=== PATIENT | female | born 1965 | race Caucasian/White ===

== ENCOUNTER 2020-07-10 07:02 | Outpatient (NON) | payer OTHER, SELFPAY ==
[2020-07-10 22:00] LABS: SARS-CoV-2 RNA PCR Negative
== END 2020-07-10 07:03 ==
LOC: ANHCOVIDDT 07:06
PROVIDERS: Visit Provider Family Medicine
DX: Z20.828 Contact with and (suspected) exposure to other viral communicable diseases (principal)
CPT/HCPCS: 87635; C9803; U0003

== ENCOUNTER 2021-04-11 12:39 | Emergency (ER) | payer OTHER, SELFPAY ==
[2021-04-11 13:01] VITALS: BP 168/112; PULSE 70; RESP 18; TEMP 36.2; O2SAT 100
--- NOTE | 2021-04-11 13:30 | ED.EAR ---
HPI - Ear Problem General Chief complaint: Ear Stated complaint: Ear Pain Time Seen by Provider: 04/11/21 13:15 Source: patient Mode of arrival: ambulatory Limitations: no limitations History of Present Illness HPI Narrative: Sandra Sanders is a55 yo female with PMH of HTN, anxiety, chronic pain, copd, gerd, who comes to [facility] with come complaints of left ear pain after taking 3 rounds of antibiotics for primary care physician and eardrops she states that she can eat cannot smell or taste cannot sleep at night because her ear is draining on the left. She states that when she lays down her ear drains and her PCP told her that she has a ruptured eardrum Related Data Home Medications Medication Instructions Recorded Confirmed amitriptyline 25 mg PO DAILY 04/11/21 04/11/21 amlodipine 10 mg PO DAILY 04/11/21 04/11/21 bupropion HCl 150 mg PO DAILY 04/11/21 04/11/21 clonidine HCl 0.2 mg PO DAILY 04/11/21 04/11/21 ergocalciferol (vitamin D2) 1,250 mcg PO DAILY 04/11/21 04/11/21 fluticasone propionate 50 mcg INTRANASAL DAILY 04/11/21 04/11/21 hydrocodone-acetaminophen 1 tablet PO DIRECTED 04/11/21 04/11/21 ibuprofen 800 mg PO DAILY 04/11/21 04/11/21 ipratropium bromide [Atrovent HFA] 17 mcg INHALATION DAILY 04/11/21 04/11/21 lisinopril-hydrochlorothiazide 1 tablet PO DAILY 04/11/21 04/11/21 [id number] 7 drp OTIC (EAR) DIRECTED 04/11/21 04/11/21 omeprazole 40 mg PO DAILY 04/11/21 04/11/21 ondansetron 4 mg PO DIRECTED 04/11/21 04/11/21 ropinirole 1 mg PO DAILY 04/11/21 04/11/21 sulfamethoxazole-trimethoprim 1 tablet PO BID 04/11/21 04/11/21 Allergies Allergy/AdvReac Type Severity Reaction Status Date / Time Cephalosporins Allergy Intermediate RASH Unverified 01/05/18 13:54 ibuprofen Allergy Intermediate RASH Unverified 01/05/18 13:54 sumatriptan Allergy Intermediate RASH Unverified 01/05/18 13:54 zolmitriptan Allergy Intermediate RASH Unverified 01/05/18 13:54 prochlorperazine Allergy Mild Other Unverified 04/11/21 12:53 cefuroxime Allergy Unknown Other Unverified 04/11/21 12:53 topiramate Allergy Unknown DOESN'T Unverified 01/05/18 13:54 REMEMBER PROCHLORPERAZINE EDISYLATE Allergy Unknown Other Uncoded 04/11/21 12:53 PROCHLORPERAZINE MALEATE Allergy Unknown Other Uncoded 04/11/21 12:53 CEFUROXIME AXETIL (Generic Allergy Y Uncoded 01/15/03 13:49 Allergy) Review of Systems Review of Systems: CONSTITUTIONAL: Denies fever, chills, sweats. EYES: Denies visual changes, redness, discharge. ENT: Denies rhinorrhea, congestion, sore throat, left otalgia. CARDIOVASCULAR: Denies chest pain, palpitations, edema. RESPIRATORY: Denies dyspnea, wheezing, cough GASTROINTESTINAL: Denies abdominal pain, nausea, vomiting, diarrhea. GENITOURINARY: Denies dysuria, hematuria, abnormal discharge SKIN: Denies rash or itching. NEUROLOGIC: Denies numbness, or focal weakness. PSYCHIATRIC: Denies anxiety or depression. PMFSH Past Medical History Medical History Anxiety Depression HTN (hypertension) Family History Family History Father Family history of heart disease in male family member before age 55 Sibling Family history of heart disease in male family member before age 55 Social History Social History Alcohol intake: never Comments At time of signature, I agree with nursing past medical, surgical, social and family history. There is no relevant family history pertinent to the presenting complaint. Exam Narrative: GENERAL: This is a well-nourished, well-developed patient, in mild distress. Quite upset-states she can sleep and and pain HEAD: normocephalic, atraumatic. EYES: Sclera clear/white. Vision is grossly intact. EARS: External ears normal, auditory left ear with drainage is erythematous with hole and TM, Hearing grossly intact. N
== END 2021-04-11 13:40 | disposition home or self-care (01) ==
PROVIDERS: Emergency Provider Nurse Practitioner; PCP Family Medicine
DX: H65.92 Unspecified nonsuppurative otitis media, left ear (principal); H72.92 Unspecified perforation of tympanic membrane, left ear; I10 Essential (primary) hypertension; F41.9 Anxiety disorder, unspecified; F32.9 Major depressive disorder, single episode, unspecified; Z79.891 Long term (current) use of opiate analgesic
CPT/HCPCS: 99213; G0463

== ENCOUNTER 2021-05-28 10:55 | Outpatient (CLI) | payer OTHER, SELFPAY | END 2021-05-28 10:56 | disposition home or self-care (01) | LOC: ANHAUDIO 10:56 | PROVIDERS: PCP Family Medicine; Visit Provider Otolaryngology | DX: H90.3 Sensorineural hearing loss, bilateral (principal) | CPT/HCPCS: 92557; 92567 ==

== ENCOUNTER 2021-06-25 10:36 | Outpatient (RCR) | payer OTHER, SELFPAY | END 2021-09-14 09:35 | disposition home or self-care (01) | LOC: ANHDMC 10:36 | PROVIDERS: PCP Family Medicine; Visit Provider Family Medicine | DX: E66.9 Obesity, unspecified (principal) | CPT/HCPCS: 99199 ==

== ENCOUNTER 2022-06-03 13:27 | Emergency (ER) | payer OTHER, SELFPAY ==
--- NOTE | 2022-06-03 13:39 | ED.URI ---
HPI - URI/Sore Throat General Stated Complaint: uri Time Seen by Provider: 06/03/22 13:39 Source: patient Mode of arrival: ambulatory Limitations: no limitations History of Present Illness HPI Narrative: Sandra is a 56-year-old female patient presenting to clinic today with complaints of a possible upper respiratory infection. She reports she has had runny nose, congestion, headaches, and body aches x4 days. States that her grand children are also sick and being seen in the clinic today for the same like symptoms MD elicited complaint: cough, rhinorrhea, nasal congestion and sinus pain Related Data Home Medications Medication Instructions Recorded Confirmed amitriptyline 25 mg tablet 25 mg PO DAILY 04/11/21 04/11/21 amlodipine 10 mg tablet 10 mg PO DAILY 04/11/21 04/11/21 bupropion HCl 150 mg 24 hr tablet, 150 mg PO DAILY 04/11/21 04/11/21 extended release clonidine HCl 0.2 mg tablet 0.2 mg PO DAILY 04/11/21 04/11/21 ergocalciferol (vitamin D2) 1,250 1,250 mcg PO DAILY 04/11/21 04/11/21 mcg (50,000 unit) capsule fluticasone propionate 50 50 mcg intranasal DAILY 04/11/21 04/11/21 mcg/actuation nasal spray,suspension hydrocodone 10 mg-acetaminophen 1 tablet PO DIRECTED 04/11/21 04/11/21 325 mg tablet ibuprofen 800 mg tablet 800 mg PO DAILY 04/11/21 04/11/21 ipratropium bromide 17 17 mcg inhalation DAILY 04/11/21 04/11/21 mcg/actuation HFA aerosol inhaler (Atrovent HFA) lisinopril 20 1 tablet PO DAILY 04/11/21 04/11/21 mg-hydrochlorothiazide 25 mg tablet [id number] 3.5 7 drp otic (ear) DIRECTED 04/11/21 04/11/21 mg-10,000 unit/mL-1 % ear drops,susp omeprazole 40 mg capsule,delayed 40 mg PO DAILY 04/11/21 04/11/21 release ondansetron 4 mg disintegrating 4 mg PO DIRECTED 04/11/21 04/11/21 tablet ropinirole 1 mg tablet 1 mg PO DAILY 04/11/21 04/11/21 sulfamethoxazole 800 1 tablet PO BID 04/11/21 04/11/21 mg-trimethoprim 160 mg tablet Allergies Allergy/AdvReac Type Severity Reaction Status Date / Time Cephalosporins Allergy Intermediate RASH Unverified 01/05/18 13:54 ibuprofen Allergy Intermediate RASH Unverified 01/05/18 13:54 sumatriptan Allergy Intermediate RASH Unverified 01/05/18 13:54 zolmitriptan Allergy Intermediate RASH Unverified 01/05/18 13:54 prochlorperazine Allergy Mild Other Unverified 04/11/21 12:53 cefuroxime Allergy Unknown Other Unverified 04/11/21 12:53 topiramate Allergy Unknown DOESN'T Unverified 01/05/18 13:54 REMEMBER PROCHLORPERAZINE EDISYLATE Allergy Unknown Other Uncoded 04/11/21 12:53 PROCHLORPERAZINE MALEATE Allergy Unknown Other Uncoded 04/11/21 12:53 CEFUROXIME AXETIL (Generic Allergy Y Uncoded 01/15/03 13:49 Allergy) Review of Systems Review of Systems: Pertinent positives per HPI. Patient denies any fever, chills, rash, headache, visual changes, dizziness, shortness of breath, chest pain, palpitations, nausea, vomiting, diarrhea, constipation, abdominal pain, or any urinary issues. [facility] Past Medical History Medical History Anxiety Depression HTN (hypertension) Family History Family History Father Family history of heart disease in male family member before age 55 Sibling Family history of heart disease in male family member before age 55 Social History Social History Alcohol intake: never Comments At the time of my signature, I reviewed and agree with the nursing past medical, surgical, social, and family history. There is no relevant family history pertinent to the patient complaint. Exam Narrative: General: Well-developed, morbidly obese, in no apparent distress Head: Normocephalic, atraumatic Eyes: Pupils equally round and reactive to light bilaterally, EOM intact, sclera and conjunctive clear, no discharge, li
[2022-06-03 13:51] VITALS: BP 175/101; PULSE 99; RESP 16; TEMP 36.2; O2SAT 97
== END 2022-06-03 14:24 | disposition home or self-care (01) ==
PROVIDERS: Emergency Provider Nurse Practitioner Family
DX: J10.1 Influenza due to other identified influenza virus with other respiratory manifestations (principal); I10 Essential (primary) hypertension; F41.9 Anxiety disorder, unspecified; F32.A Depression, unspecified
CPT/HCPCS: 87804; 99213; G0463

== ENCOUNTER 2023-07-06 17:19 | Emergency (ER) | payer OTHER, SELFPAY ==
[2023-07-06 17:41] VITALS: BP 132/77; PULSE 88; RESP 20; TEMP 36.4; O2SAT 100
--- NOTE | 2023-07-06 17:53 | ED.URI ---
HPI - URI/Sore Throat General Chief Complaint: Upper Respiratory Infection Stated Complaint: Ears Irritation/Headache Time Seen by Provider: 07/06/23 17:53 Source: patient Mode of arrival: ambulatory Limitations: no limitations History of Present Illness HPI Narrative: 57-year-old female presents with complaint of sore throat, fatigue, headaches for the past 3-4 days. Afebrile. Patient recently seen by her primary care physician for URI 2 weeks ago took Z-[place] and prednisone, those symptoms resolved. Granddaughter positive for strep. All systems reviewed and negative except as noted above. Related Data Home Medications Medication Instructions Recorded Confirmed amlodipine 10 mg tablet 10 mg PO DAILY 04/11/21 04/11/21 clonidine HCl 0.2 mg tablet 0.2 mg PO DAILY 04/11/21 04/11/21 ergocalciferol (vitamin D2) 1,250 1,250 mcg PO DAILY 04/11/21 04/11/21 mcg (50,000 unit) capsule fluticasone propionate 50 50 mcg intranasal DAILY 04/11/21 04/11/21 mcg/actuation nasal spray,suspension hydrocodone 10 mg-acetaminophen 1 tablet PO DIRECTED 04/11/21 04/11/21 325 mg tablet ipratropium bromide 17 17 mcg inhalation DAILY 04/11/21 04/11/21 mcg/actuation HFA aerosol inhaler (Atrovent HFA) lisinopril 20 1 tablet PO DAILY 04/11/21 04/11/21 mg-hydrochlorothiazide 25 mg tablet omeprazole 40 mg capsule,delayed 40 mg PO DAILY 04/11/21 04/11/21 release ondansetron 4 mg disintegrating 4 mg PO DIRECTED 04/11/21 04/11/21 tablet ropinirole 1 mg tablet 1 mg PO DAILY 04/11/21 04/11/21 aspirin 81 mg tablet,delayed 81 mg PO DAILY 07/06/23 07/06/23 release Allergies Allergy/AdvReac Type Severity Reaction Status Date / Time Cephalosporins Allergy Intermediate RASH Verified 07/06/23 17:45 ibuprofen Allergy Intermediate RASH Verified 07/06/23 17:45 sumatriptan Allergy Intermediate RASH Verified 07/06/23 17:45 zolmitriptan Allergy Intermediate RASH Verified 07/06/23 17:45 prochlorperazine Allergy Mild Other Verified 07/06/23 17:45 cefuroxime Allergy Unknown Other Verified 07/06/23 17:45 topiramate Allergy Unknown DOESN'T Verified 07/06/23 17:45 REMEMBER PROCHLORPERAZINE EDISYLATE Allergy Unknown Other Uncoded 07/06/23 17:45 PROCHLORPERAZINE MALEATE Allergy Unknown Other Uncoded 07/06/23 17:45 CEFUROXIME AXETIL (Generic Allergy Y Uncoded 07/06/23 17:45 Allergy) Review of Systems Review of Systems: CONSTITUTIONAL: Denies fever, chills, or sweats. reports fatigue. EYES: Denies visual changes, redness, or discharge. ENT: Reports rhinorrhea, congestion, sore throat. Denies otalgia. CARDIOVASCULAR: Denies chest pain, palpitations, or edema. RESPIRATORY: Denies cough or dyspnea. GASTROINTESTINAL: Denies abdominal pain, nausea, vomiting, or diarrhea. GENITOURINARY: Denies dysuria or hematuria. SKIN: Denies rash or itching. MUSCULOSKELETAL: Denies back pain, joint pain, or myalgia. NEUROLOGIC: Denies headache, numbness, or weakness. PSYCHIATRIC: Denies anxiety or depression. All other systems reviewed are negative, except as documented in HPI. PMFSH Past Medical History Medical History Anxiety Depression HTN (hypertension) Family History Family History Father Family history of heart disease in male family member before age 55 Sibling Family history of heart disease in male family member before age 55 Social History Social History Alcohol intake: never Comments At time of signature, agree with nursing past medical, surgical, social and family history. There is no relevant family history pertinent to the presenting complaint. Exam Narrative: GENERAL: This is a well-nourished, well-developed patient, in no apparent distress. HEAD: normocephalic, atraumatic. EYES: PERRL. Sclera clear/white. Vision is grossly
== END 2023-07-06 18:14 | disposition home or self-care (01) ==
PROVIDERS: Emergency Provider Nurse Practitioner Family
DX: J02.0 Streptococcal pharyngitis (principal); Z20.822 Contact with and (suspected) exposure to COVID-19; I10 Essential (primary) hypertension; Z79.82 Long term (current) use of aspirin
CPT/HCPCS: 87426; 87804; 87880; 99213; C9803; G0463

== ENCOUNTER 2025-03-04 19:21 | Emergency (ER) | payer OTHER, SELFPAY ==
--- NOTE | 2025-03-04 19:33 | ED.URI ---
HPI - URI/Sore Throat General Chief Complaint: Upper Respiratory Infection Stated Complaint: Sinus/Cough Time Seen by Provider: 03/04/25 19:44 Source: patient, RN notes reviewed and old records reviewed Mode of arrival: ambulatory Limitations: no limitations History of Present Illness HPI Narrative: 59-year-old female presents to the [facility] sinus congestion, some sneezing, left ear pain for 9 days. Patient reports that she was prescribed steroids, nasal spray which are ?doing nothing for her. ? Also has a rash to the groin area and under her pannus. Reports it as being a foul-smelling. Has been cleaning it with peroxide. Patient does smoke. Onset (ago): day(s) (9) Treatments prior to arrival: cold medicine Related Data Home Medications ?Medication ?Instructions ?Recorded ?Confirmed ?Last Taken ?Type amlodipine 10 mg tablet 10 mg PO DAILY 04/11/21 04/11/21 Unknown History clonidine HCl 0.2 mg tablet 0.2 mg PO DAILY 04/11/21 04/11/21 Unknown History ergocalciferol (vitamin D2) 1,250 1,250 mcg PO DAILY 04/11/21 04/11/21 Unknown History mcg (50,000 unit) capsule fluticasone propionate 50 50 mcg intranasal DAILY 04/11/21 04/11/21 Unknown History mcg/actuation nasal spray,suspension hydrocodone 10 mg-acetaminophen 1 tablet PO DIRECTED 04/11/21 04/11/21 Unknown History 325 mg tablet ipratropium bromide 17 17 mcg inhalation DAILY 04/11/21 04/11/21 Unknown History mcg/actuation HFA aerosol inhaler (Atrovent HFA) lisinopril 20 1 tablet PO DAILY 04/11/21 04/11/21 Unknown History mg-hydrochlorothiazide 25 mg tablet omeprazole 40 mg capsule,delayed 40 mg PO DAILY 04/11/21 04/11/21 Unknown History release ondansetron 4 mg disintegrating 4 mg PO DIRECTED 04/11/21 04/11/21 Unknown History tablet ropinirole 1 mg tablet 1 mg PO DAILY 04/11/21 04/11/21 Unknown History aspirin 81 mg tablet,delayed 81 mg PO DAILY 07/06/23 07/06/23 Unknown History release Allergies Allergy/AdvReac Type Severity Reaction Status Date / Time Cephalosporins Allergy Intermediate RASH Verified 03/04/25 19:38 ibuprofen Allergy Intermediate RASH Verified 03/04/25 19:38 sumatriptan Allergy Intermediate RASH Verified 03/04/25 19:38 zolmitriptan Allergy Intermediate RASH Verified 03/04/25 19:38 prochlorperazine Allergy Mild Other Verified 03/04/25 19:38 cefuroxime Allergy Unknown Other Verified 03/04/25 19:38 topiramate Allergy Unknown DOESN'T Verified 03/04/25 19:38 REMEMBER PROCHLORPERAZINE EDISYLATE Allergy Unknown Other Uncoded 03/04/25 19:38 PROCHLORPERAZINE MALEATE Allergy Unknown Other Uncoded 03/04/25 19:38 CEFUROXIME AXETIL (Generic Allergy Y Uncoded 03/04/25 19:38 Allergy) Review of Systems Review of Systems: All systems reviewed & are unremarkable except as noted in HPI and below Constitutional: Constitutional: Reports no additional constitutional complaints ENT: Reports as per HPI, Reports otalgia, Reports facial pain, Reports headache(s), Reports post nasal drip, Reports sinus pain and Reports sinus pressure Cardiovascular: Cardiovascular: Reports no additional cardiovascular complaints, Denies chest pain and Denies dyspnea Respiratory: Respiratory: Reports as per HPI, Denies chest congestion, Reports cough and Denies dyspnea Musculoskeletal: Musculoskeletal: Reports no additional musculoskeletal complaints Integumentary/Breasts: Skin/Breast: Reports as per HPI PMF Past Medical History Medical History Depression Anxiety HTN (hypertension) Family History Family History Father Family history of heart disease in male family member before age 55 Sibling Family history of heart disease in male family member before age 55 Social History Social History Alcohol intake: never Comments At the time of my signature, I reviewed and agree with the nursing past medical, surgical, social, and family history. There is no relevant family history pertinent to the patient complaint. Exam Const: General: cooperative, no acute distress, well developed, alert, ill appearing acutely and chronically, uncomfortable and well nourished Nutritional Appearance: well nourished Orientation/consciousness: patient oriented x3 Limitations: no limitations HENMT: Head: normal to inspection Ears: hearing grossly normal bilaterally, external ears normal, TM's normal bilaterally, EAC's normal, mastoids normal and no periauricular adenopathy Face/Nose/Sinus: Normal external nose present, face symmetric, No abrasion and sinus tenderness Mouth: Yes Normal oral and palatal mucosa present, Yes lip normal, Yes tongue normal and Yes moist mucous membranes Throat: posterior oropharynx normal, uvula midline and no uvular edema Eyes: General: appearance normal, both eyes and all related structures Alignment and Position: alignment normal Neck: Neck: normal visual inspection, full ROM, no lymphadenopathy and no meningeal signs Chest: Chest palpation & inspection: normal inspection of the chest Resp: Effort & Inspection: normal respiratory effort and able to speak in complete sentences Auscultation: no crackles, no rales, no rhonchi, no wheezes and diminished lung sounds diffuse Cardio: Rate: regular rate Skin: General skin exam: normal color and no rashes or lesions noted Other: Under pannus and groin area, red, excoriated skin consistent with yeast infection Neuro: General: patient oriented x3, gait normal, moves all extremities and no meningeal signs Cognition (Neuro): normal cognition Speech: normal speech Gait exam (Neuro): Normal gait present Extrem: General: normal to inspection, full ROM, capillary refill normal and normal gait Psych: Appearance: grossly normal and well kempt Mental Status: mental status grossly normal Speech and movement: Normal speech and movement present and Clear speech present Affect: normal affect Attitude: cooperative Course Course Level of Care: Express Care Visit Vital Signs Vital signs: Vital Signs Temperature 96.7 F L 03/04/25 19:38 Pulse Rate 109 H 03/04/25 19:38 Respiratory Rate 14 03/04/25 19:38 Blood Pressure 122/71 03/04/25 19:38 Pulse Oximetry 99 03/04/25 19:38 Oxygen Delivery Room Air 03/04/25 19:38 Temperature 96.7 F L 03/04/25 19:38 Pulse Rate 109 H 03/04/25 19:38 Respiratory Rate 14 03/04/25 19:38 Blood Pressure 122/71 03/04/25 19:38 Pulse Oximetry 99 03/04/25 19:38 Oxygen Delivery Room Air 03/04/25 19:38 Reviewed MDM - URI/Sore Throat MDM Narrative Medical decision making narrative: Patient sitting in exam room. Patient is nontoxic but appears uncomfortable. Patient chronically ill in appearance. Patient is a smoker, 9 day history of sinus pain, pressure Patient also with a yeast infection under the pannus in the groin Patient appropriate for outpatient treatment with antibiotic, nystatin cream Discharge instructions reviewed with patient, as well as provided in writing per nursing staff. The instructions also include specific and strict return/GO TO THE ER as well as f/u information. All questions have been answered, and the patient deny any further questions with discharge and discharge plan. Some parts of this dictation were generated by voice recognition software and may contain typographical and/or grammatical inaccuracies. Differential Diagnosis Differential diagnosis: Likely upper respiratory infection, otitis media, sinusitis, viral infection, bronchitis, influenza and pharyngitis Lab Data Labs: Lab Results 03/04/25 03/04/25 03/04/25 Range/Units 19:42 19:52 19:53 POC Influenza A Ag Negative (Negative) POC Influenza B Ag Negative (Negative) POC SARS CoV-2 Ag Negative (Negative) POC Grp A Strep Screen Negative (Negative) Reviewed Critical Care Time Critical Care Time Critical Care Time: No Discharge Plan Discharge Clinical Impression: Yeast infection Sinusitis Qualifiers: Sinusitis location: pansinusitis Chronicity: acute Recurrence: not specified as recurrent Qualified Code(s): J01.40 - Acute pansinusitis, unspecified Patient Disposition: Home Condition: Stable Instructions: Antibiotic Form, Sinusitis (ED), Skin Yeast Infection (ED) Additional Instructions: Your rapid strep swab was negative today at [facility]. A throat culture will be sent to the laboratory for further testing. If the test is positive, you will receive a phone call within 48 hours and an appropriate antibiotic will be initiated at that time. Your rapid COVID test were negative Your rapid flu test was negative -Alternate Tylenol and Motrin per package directions for fever or pain. You can alternate every 4 hours -Antihistamine medication such as Zyrtec/Claritin/Esther during the day can help improve symptoms. -doing daily nasal irrigations can help relieve pressure your sinuses. Things like a Neti pot -Use Flonase twice a day for 5 days then daily to help reduce the inflammation and dry up your sinuses. -You can also use Coricidin HBP or cold medicine that is safe with high blood pressure. Be sure to drink plenty of water with this medication at least 8 ounces with every dose and it is important to drink 8 to 10 glasses of water per day. Water is a natural decongestant -Eat and drink things that are easy to swallow, like tea or soup, or popsicles. -Oral rinses such as: Salt water gargles and/or may use topical anesthetic (eg. Chloraseptic spray) or lozenges to relieve dryness or throat pain). -Frequent hand washing or hand white sugar boiler is one of the best ways to prevent spread of infection. -Using a vaporizer or humidifier at night will also help thin secretions and help with coughing up phlegm. -Follow up with primary care provider in 7-10 days if condition is not improving - For new or worsening symptoms go directly to the nearest ER Patient Language: Trinidadian Prescriptions: New amoxicillin-pot clavulanate 875-125 mg tablet 1 tablet PO Q12H Qty: 20 0RF nystatin 100,000 unit/gram ointment 1 applic topical BID Qty: 60 0RF No Action aspirin [Aspir-81] 81 mg Tablet,Delayed Release (Dr/Ec) 81 mg PO DAILY ropinirole 1 mg tablet 1 mg PO DAILY hydrocodone-acetaminophen 10-325 mg tablet 1 tablet PO DIRECTED omeprazole 40 mg capsule,delayed release(DR/EC) 40 mg PO DAILY clonidine HCl 0.2 mg tablet 0.2 mg PO DAILY amlodipine 10 mg tablet 10 mg PO DAILY lisinopril-hydrochlorothiazide 20-25 mg tablet 1 tablet PO DAILY ergocalciferol (vitamin D2) 1,250 mcg (50,000 unit) capsule 1,250 mcg PO DAILY ondansetron 4 mg tablet,disintegrating 4 mg PO DIRECTED fluticasone propionate 50 mcg/actuation spray,suspension 50 mcg INTRANASAL DAILY Atrovent HFA 17 mcg/actuation HFA aerosol inhaler 17 mcg INHALATION DAILY albuterol sulfate [Proventil HFA] 90 mcg/actuation HFA aerosol inhaler 1 inh inhalation QID PRN (Reason: shortness of breath or wheezing) 30 Days Qty: 8.5 0RF Follow-up/Referrals: PHYSICIAN,LAMINATOR HAND [Primary Care Provider] - Time of Disposition: 19:55
[2025-03-04 19:38] VITALS: BP 122/71; PULSE 109; RESP 14; TEMP 35.9; O2SAT 99
[2025-03-04 19:54] LABS: EDSTREPNEGPOS1 Negative (Negative)
[2025-03-04 19:54] LABS: EDINFLUASCREEN Negative (Negative); EDINFLUBSCREEN Negative (Negative)
[2025-03-04 19:55] LABS: EDCOVIDSCREEN Negative (Negative)
== END 2025-03-04 20:06 | disposition home or self-care (01) ==
PROVIDERS: Emergency Provider Nurse Practitioner
DX: B37.2 Candidiasis of skin and nail (principal); J01.40 Acute pansinusitis, unspecified; Z20.822 Contact with and (suspected) exposure to COVID-19; I10 Essential (primary) hypertension; Z79.82 Long term (current) use of aspirin
CPT/HCPCS: 87081; 87426; 87804; 87880; 99213; G0463